=== PATIENT | female | born 1950 | race Caucasian/White ===

== ENCOUNTER → 2016-09-19 | Outpatient (CLI) | payer MEDICARE, BC ==
[~2016-09-19] MED LIST: AMOXICILLIN 50500 MG PO; ANTIVERT 25MG25 MG PO; BENICAR 20MG TA20 MG PO; BENICAR40 MG PO; CELEBREX 200MG200 MG PO; DOXYCYCLINE HY100 MG PO; HCTZ 25MG TAB25 MG PO; ISOPTIN SR120 MG PO; MASON NATURAL2000 IU PO; PROAIR HFA0.09 MG/AC IH; PROTONIX 40MG T40 MG PO; RESTASIS 0.4 M0.4 ML; RESTASIS 60VL OD; THE MEDICINE S200 M2 PO; ZOFRAN 4MG T4 MG/TAB PO
== END ==
LOC: MC.RAD 09-13 14:40
DX: Z12.31 Encounter for screening mammogram for malignant neoplasm of breast (principal)

== ENCOUNTER 2017-01-13 06:44 | Day surgery (SDC) | payer MEDICARE, BC ==
[~2017-01-13] VITALS: Ht 167.6 cm; Wt 73.1 kg
[~2017-01-13 06:44] MED LIST changes: -AMOXICILLIN 50500 MG PO; -BENICAR40 MG PO; -CELEBREX 200MG200 MG PO; -DOXYCYCLINE HY100 MG PO; -HCTZ 25MG TAB25 MG PO; -ISOPTIN SR120 MG PO; -MASON NATURAL2000 IU PO; -PROAIR HFA0.09 MG/AC IH; -RESTASIS 60VL OD; -THE MEDICINE S200 M2 PO
[2017-01-13] MEDS ORDERED: AMOXICILLIN 50500 MG PO (07:05)
[2017-01-13] MEDS ORDERED: ISOPTIN SR120 MG PO (07:06)
[2017-01-13] MEDS ORDERED: BENICAR40 MG PO (07:08)
[2017-01-13] MEDS ORDERED: HCTZ 25MG TAB25 MG PO (07:08)
[2017-01-13] MEDS ORDERED: PROTONIX 40MG T40 MG PO (07:10)
[2017-01-13] MEDS ORDERED: PROAIR HFA0.09 MG/AC IH (07:11)
[2017-01-13] MEDS ORDERED: CELEBREX 200MG200 MG PO (07:11)
[2017-01-13] MEDS ORDERED: DOXYCYCLINE HY100 MG PO (07:12)
[2017-01-13] MEDS ORDERED: MASON NATURAL2000 IU PO (07:13)
[2017-01-13] MEDS ORDERED: THE MEDICINE S200 M2 PO (07:13)
[2017-01-13] MEDS ORDERED: RESTASIS 60VL OD (07:14)
[2017-01-13 07:31] VITALS: BP 160/88; PULSE 78; TEMP 98.5
[2017-01-13 08:55] VITALS: BP 131/71; PULSE 67; TEMP 98
[2017-01-13 09:00] VITALS: BP 124/74; PULSE 64
[2017-01-13 09:15] VITALS: BP 130/74; PULSE 64
[2017-01-13 09:30] VITALS: BP 138/74; PULSE 63
[2017-01-13 09:45] VITALS: BP 134/74; PULSE 76
== END 2017-01-13 10:15 | disposition home or self-care (01) ==
LOC: SDCO 06:44
DX: Z12.11 Encounter for screening for malignant neoplasm of colon (principal); D12.0 Benign neoplasm of cecum; K21.0 Gastro-esophageal reflux disease with esophagitis; K22.70 Barrett's esophagus without dysplasia; K57.30 Diverticulosis of large intestine without perforation or abscess without bleeding; K31.7 Polyp of stomach and duodenum; Z86.010 Personal history of colon polyps; I10 Essential (primary) hypertension; K59.00 Constipation, unspecified; Z80.0 Family history of malignant neoplasm of digestive organs; Z90.710 Acquired absence of both cervix and uterus
CPT/HCPCS: J2250; J2405; J3010; J7030

== ENCOUNTER → 2017-12-12 | Outpatient (CLI) | payer MEDICARE, BC ==
[~2017-12-12] MED LIST changes: +AMOXICILLIN 50500 MG PO; +BENICAR40 MG PO; +CELEBREX 200MG200 MG PO; +DOXYCYCLINE HY100 MG PO; +HCTZ 25MG TAB25 MG PO; +ISOPTIN SR120 MG PO; +MASON NATURAL2000 IU PO; +PROAIR HFA0.09 MG/AC IH; +RESTASIS 60VL OD; +THE MEDICINE S200 M2 PO
== END ==
LOC: MC.RAD 13:00
DX: Z12.31 Encounter for screening mammogram for malignant neoplasm of breast (principal)